=== PATIENT | female | born 2000 | race Asian ===

== ENCOUNTER 2021-09-22 19:37 | Emergency (ER) | payer BC, SELFPAY ==
[2021-09-22 20:06] VITALS: BP 102/65; PULSE 85; RESP 16; TEMP 36.4; O2SAT 99
--- NOTE | 2021-09-22 20:24 | ED.GENADULT ---
HPI - General Adult General Chief complaint: Anxiety Stated complaint: covid+ / Fast Heartrate Time Seen by Provider: 09/22/21 20:03 History of Present Illness HPI narrative: This 21-year-old female comes in reporting increased heart rate. She began to have some upper respiratory symptoms the night before last and tested positive for COVID today. She was concerned cousins she observed her heart rate increased at around 110-120 beats per minute. She does not report any shortness of breath, chest pain, lightheadedness, nausea, vomiting, or diarrhea. On arrival here her vital signs are all within normal limits. Related Data Home Medications Medication Instructions Recorded Confirmed methylphenidate HCl 5 mg tablet 5 mg PO DAILY 09/22/21 09/22/21 (Ritalin) Allergies Allergy/AdvReac Type Severity Reaction Status Date / Time No Known Drug Allergies Allergy Verified 09/22/21 20:09 Review of Systems Status of ROS: Reports: 10 or more systems reviewed and unremarkable except as noted in History and below Narrative: Constitutional: No fevers, no weight gain or loss. Eyes: No discharge. No vision changes. HENT: No congestion, no sore throat, no ear pain. Cardiovascular: No chest pain, no palpitations. Respiratory: No shortness of breath, no wheezes, no cough. Gastrointestinal: No abdominal pain, no vomiting, no diarrhea. Genitourinary: No dysuria, no hematuria. Musculoskeletal: Normal range of motion. Skin: No rashes, no pruritis. Neurological: No dizziness, weakness, sensory change, speech change. Endo/Heme/Allergies: No bruising or bleeding. No polydipsia. Pysch: no suicidality, no anxiety, no insomnia. All other systems reviewed and are negative. Exam Narrative: Exam Narrative: Constitutional: Well-developed, well-nourished, no acute distress. HEENT: Normocephalic, atraumatic. Neck: Normal range of motion. Nontender. Supple. Heart: Regular. No murmurs. Normal rate. Intact distal pulses. Lungs: Clear to auscultation. No chest discomfort. No wheezes, rhonchi, or rales. Abdomen: Normal bowel sounds. Nontender. No rebound tenderness. Genitalia: Deferred. Back: No midline tenderness. Normal range of motion. Extremities: Normal range of motion. No injury. Skin: Intact. No rash. Warm. No erythema or pallor. Neurologic: No altered sensation. No weakness. Alert and oriented. Psychiatric: No suicidality. No anxiety or depression. No insomnia. Nursing notes and vitals signs are reviewed. Const: Vital Signs, click to edit/add: Vital Signs - 24 hr 09/22/21 20:06 Temperature 97.6 F Pulse Rate [Right Pulse Oximeter] 85 Respiratory Rate 16 Blood Pressure [Ri ght Upper Arm] 102/65 Pulse Oximetry 99 Course Vital Signs Vital signs: Initial Vital Signs Temperature 97.6 F 09/22/21 20:06 Temperature Source Temporal Artery Scan 09/22/21 20:06 Pulse Rate 85 09/22/21 20:06 Respiratory Rate 16 09/22/21 20:06 Blood Pressure 102/65 09/22/21 20:06 Blood Pressure Mean 77 09/22/21 20:06 Blood Pressure Position Sitting 09/22/21 20:06 Pulse Oximetry 99 09/22/21 20:06 Oxygen Delivery Method 09/22/21 20:06 Vital Signs Temperature 97.6 F 09/22/21 20:06 Pulse Rate 85 09/22/21 20:06 Respiratory Rate 16 09/22/21 20:06 Blood Pressure 102/65 09/22/21 20:06 Pulse Oximetry 99 09/22/21 20:06 Temperature 97.6 F 09/22/21 20:06 Pulse Rate 85 09/22/21 20:06 Respiratory Rate 16 09/22/21 20:06 Blood Pressure 102/65 09/22/21 20:06 Pulse Oximetry 99 09/22/21 20:06 Medical Decision Making [facility] Narrative Medical decision making narrative: This patient comes in with concern about increased heart rate that she measured prior to arrival. She is positive for COVID. She is maintaining normal vital signs throughout her stay here. She had some anxiety about her heart rate but is reassured with her vital signs here and a normal exam. I did discuss lab and imaging options with the patient and in a process of shared decision making these were declined. She is advised regarding signs or symptoms that would indicate a need for return and re-evaluation, especially if becoming short of breath and hypoxic. Discharge Plan Discharge Clinical Impression: COVID-19 Patient Disposition: Home, Self-Care Condition: Stable Instructions: COVID-19 (Coronavirus Disease 2019) (ED) Additional Instructions: Use [id number] medicines as needed and directed. Follow up with MD or return if worsening symptoms occur, especially if becoming short of breath or hypoxic. Prescriptions: No Action methylphenidate HCl [Ritalin] 5 mg tablet 5 mg PO DAILY 0RF Stand Alone Forms: [employer] Info Instructions
[2021-09-22 20:37] VITALS: BP 105/78; PULSE 89; RESP 16; TEMP 36.4
== END 2021-09-22 20:44 | disposition home or self-care (01) ==
LOC: ED 20:40
PROVIDERS: Emergency Provider Emergency Medicine Emergency Medical Services
DX: U07.1 COVID-19 (principal)
CPT/HCPCS: 99283